=== PATIENT | female | born 1985 | race African-American/Black ===

== ENCOUNTER 2019-04-14 02:41 | Emergency (ER) | payer BC ==
[~2019-04-14] VITALS: Ht 177.8 cm; Wt 82.0 kg
[2019-04-14] MEDS ORDERED: METOCLOPRAMIDE HCL 10MG/2ML VIAL IV ONE (05:15)
[2019-04-14] MEDS ORDERED: DIPHENHYDRAMINE 50MG/ML VIAL IV ONE (05:15)
[2019-04-14 09:59] VITALS: BP 106/55
== END 2019-04-14 09:40 | disposition home or self-care (01) ==
LOC: ER 02:41
DX: G43.909 Migraine, unspecified, not intractable, without status migrainosus (principal); Z88.6 Allergy status to analgesic agent; Z88.5 Allergy status to narcotic agent; Z91.048 Other nonmedicinal substance allergy status; Z90.49 Acquired absence of other specified parts of digestive tract
CPT/HCPCS: 96374; 96375; 99283; J1200; J2765